=== PATIENT | female | born 1990 | race Caucasian/White ===

== ENCOUNTER 2019-07-19 17:14 | Emergency (ER) | payer MEDICAID, SELFPAY ==
--- NOTE | 2019-07-19 17:27 | ED.URI ---
HPI - URI/Sore Throat General Chief Complaint: Upper Respiratory Infection Stated Complaint: Sore throat/Body Aches Time Seen by Provider: 07/19/19 17:33 Source: patient and RN notes reviewed Mode of arrival: ambulatory Limitations: no limitations History of Present Illness HPI Narrative: 29 year old female who presents to express care with complaints of illness since yesterday of sore throat,body aches, cough, also has had frequency of urination with cloudy odorous urine. Patient states throat is very sore especially with swallowing with lymphadenopathy noted. Patient states frequency of urination with burning, some low back pain, denies any perineum or supra pubic abdominal pain. Patient states she has had some fevers and chills, last dose of ibuprofen was 1:00 this afternoon MD elicited complaint: fever and sore throat Pertinent past history: other (uti) Onset (ago): day(s) (1) Consistency: progressively worsening Severity: moderate Pain scale (0-10): 10 Description of mucous: clear Able to tolerate fluids by mouth: Yes Exacerbating factors: swallowing Relieving factors: NSAID Associated symptoms: myalgias, sore throat and other (BACK PAIN, BODY ACHES ODOROUS URINE) Treatments prior to arrival: ibuprofen Related Data Allergies Allergy/AdvReac Type Severity Reaction Status Date / Time Sulfa (Sulfonamide Allergy Difficulty Verified 07/19/19 17:41 Antibiotics) Breathing Review of Systems Review of Systems: Narrative: CONSTITUTIONAL:positive for fever, chills,states sweats. EYES: Denies visual changes, redness, or discharge. ENT: Denies rhinorrhea, congestion,positive sore throat, no otalgia. CARDIOVASCULAR: Denies chest pain, palpitations, or edema. RESPIRATORY: positive cough denies dyspnea. GASTROINTESTINAL: Denies abdominal pain, nausea, vomiting, or diarrhea. GENITOURINARY: POSITIVE dysuria or hematuria. SKIN: Denies rash or itching. MUSCULOSKELETAL: POSITIVE LOW back pain, joint pain,reports body aches NEUROLOGIC: Denies headache, numbness, or weakness. PSYCHIATRIC: Denies anxiety or depression. All systems reviewed & are unremarkable except as noted in HPI and below PMFSH Past Medical History Medical History (Updated 07/20/19 @ 00:00 by Matthew Frederick) UTI (urinary tract infection) Surgical History Surgical History (Updated 07/19/19 @ 17:44 by Lois Elder NP) Hx of bladder repair surgery Previous section Social History Social History (Updated 07/19/19 @ 17:45 by Lois Elder NP) Smoking packs per day: 0.5 Smoking cigarettes per day: 10.0 Years smoked: 18 Smoking pack-years: 9.00 Smoking status: Current every day smoker Living arrangements: with family Gender identity (if verbalized by the patient): Female Comments At time of signature, agree with nursing past medical, social history. There is no relevant family history pertinent to the presenting complaint Exam Narrative: Exam Narrative: GENERAL: ill-appearing, well-nourished, and in no acute distress. HEAD: Normocephalic, atraumatic. EYES: PERRLA and EOMI. ENT: Nares clear, no rhinorrhea or epistaxis. Mucous membranes moist.TM's normal with good light reflex, throat red, tonsils red swollen with pus pockets, NECK: Supple.lymphadenopathy CHEST: Clear to auscultation. No respiratory distress.SAO2 98% on room air HEART: Regular rate and rhythm. No murmur heard. Normal peripheral pulses. ABDOMEN: Soft, nontender, nondistended, normal active bowel sounds. EXTREMITIES: Normal range of motion. No edema. SKIN: Warm, dry, no rash. NEURO: No focal deficits. Alert and oriented x3. Course Vital Signs Vital signs: Vital Signs Temperature 37.5 C 07/19/19 17:33 Pulse Rate 108 H 07/19/19 17:33 Respiratory Rate 20 07/19/19 17:33 Blood Pressure 125/80 07/19/19 17:33 Pulse Oximetry 98 07/19/19 17:33 Temperature 37.5 C 07/19/19 17:33 Pulse Rate 108 H 07/19/19 17:33 Respiratory Rate 20 03
[2019-07-19 17:33] VITALS: BP 125/80; PULSE 108; RESP 20; TEMP 37.5; O2SAT 98
== END 2019-07-19 18:10 | disposition home or self-care (01) ==
PROVIDERS: Emergency Provider Registered Nurse; PCP Family Medicine
DX: J02.0 Streptococcal pharyngitis (principal); N39.0 Urinary tract infection, site not specified; F17.210 Nicotine dependence, cigarettes, uncomplicated
CPT/HCPCS: 81003; 87077; 87086; 87088; 87186; 87804; 87880; 99213; G0463